=== PATIENT | female | born 1940 | race Caucasian/White ===

== ENCOUNTER 2016-12-30 09:05 | Observation (INO) | payer MEDICARE, BC ==
[~2016-12-30] VITALS: Ht 167.6 cm; Wt 79.5 kg
[2016-12-30] VITALS (14 sets, daily range): BP systolic 100–140; BP diastolic 56–73; PULSE 51–66; TEMP 97.6–98.1; O2SAT 82–100
[~2016-12-30 09:05] MED LIST: ADDERALL XR20 MG PO; AMBIEN CR12.5 MG PO; ARICEPT10 MG PO; ARICEPT5 MG PO; ASPI325T6 PO; ASPIRIN 81M81 MG/TA2 PO; ATIVAN0.5 MG PO; AUGMENTIN 875 M1 TAB PO; BUPROPION HCL150 M1 PO; CLINDAMYCIN HC300 MG PO; COZAAR 50MG50 MG/TAB PO; COZAAR100 MG PO; CYANOCOBAL1000 MCG/1 IM; DOXYCYCLINE 10100 MG PO; DRAMAMINE50 MG PO; FLEXERIL10 MG PO; HYDROCODONE/APAP; HYDROCORT CREAM1% TOP; HYOMAX-FT0.125 MG PO; KLOR-CON 1010 MEQ PO; LASIX 20MG TABL20 MG PO; MULTIPLE VITAMI1 CAP PO; MVI; NAMENDA10 MG PO; NEXIUM 40MG40 MG PO; NORCO 325 MG-7.1 TAB PO; OMEPRAZOLE D/R20 MG PO; PREMARIN VAG42.5 GM VG; PRILOSEC 20MG20 MG PO; PROZAC 20MG20 MG PO; REGLAN 10MG10 MG/TAB PO; SYNTHROID0.05 MG/TA PO; ULTRAM 50MG TAB50 MG PO; VICODIN 5/5001 UDTAB PO; VITAMIN B12100 MCG PO; WELLBUTRIN XL300 M1 PO; XALATAN EYE DROPS OU; ZOFRAN 4MG T4 MG/TAB PO; [UNRECOGNIZED DRUG - OTHER] PO
[2016-12-30 10:56] LABS: BASO # 0.1 (0.0-0.2); BASO % 0.4 % (0.0-2.0); EOS # 0.2 (0.0-0.7); EOS % 1.8 % (0-4.0); GRAN # 9.1 (1.4-6.5); GRAN % 80.3 % (42.2-75.2); LYMPH # 1.3 (1.2-3.4); LYMPH % 11.6 % (20.0-51.0); MEAN CELL VOLUME 79 fl (80.0-100.0); MEAN CORPUSCULAR HGB CONC 30 g/dl (33.0-37.0); MEAN PLATELET VOLUME 9.6 fl (7.4-10.4); MONO # 0.6 (0.1-0.6); MONO % 5.6 % (1.7-9.3); PLATELET COUNT 344 K/mm3 (130-400); RED BLOOD COUNT 4.24 M/mm3 (4.10-5.30); REDCELL DISTRIBUTION WIDTH-CV 17.9 % (11.5-14.5); WHITE BLOOD COUNT 11.3 K/mm3 (4.8-10.8)
[2016-12-30 10:59] LABS: HEMATOCRIT 33.6 % (37.0-47.0); HEMOGLOBIN 9.9 g/dl (12.5-16.0); MEAN CORPUSCULAR HEMOGLOBIN 23 pg (27.0-31.0)
[2016-12-30 11:07] LABS: PH 5 (5-8); SQUAMOUS EPITHELIAL 0-2 /hpf; URINE APPEARANCE Clear; URINE BACTERIA Rare /hpf; URINE BILIRUBIN Negative (NEGATIVE); URINE BLOOD Negative (NEGATIVE); URINE COLOR Yellow; URINE GLUCOSE Negative (NEGATIVE); URINE KETONE Negative (NEGATIVE); URINE RBC 0-2 /hpf; URINE UROBILINOGEN Negative (NEGATIVE)
[2016-12-30 11:08] LABS: ADJUSTED CALCIUM 9.1 mg/dL (8.4-10.2); ALANINE AMINOTRANSFERASE 20 U/L (9-52); ALBUMIN 3.6 gm/dL (3.5-5.0); ALKALINE PHOSPHATASE 87 U/L (50-136); ANION GAP 9 mmol/L (7-16); BILIRUBIN,TOTAL 0.5 mg/dL (0.0-1.0); BLOOD UREA NITROGEN 17 mg/dL (7-17); CALCIUM 8.8 mg/dL (8.4-10.2); CARBON DIOXIDE 25 mmol/L (22-30); CHLORIDE 105 mmol/L (98-107); CREATININE, serum 0.75 mg/dL (0.52-1.25); GLUCOSE 71 mg/dL (74-106); POTASSIUM 4.1 mmol/L (3.4-5.0); SODIUM 139 mmol/L (137-145); TOTAL PROTEIN 6.4 gm/dL (6.4-8.2)
[2016-12-30 11:09] LABS: C-REACTIVE PROTEIN < 0.5 mg/dL (0.0-0.9)
[2016-12-30 11:15] LABS: TROPONIN-I < 0.012 ng/mL (0.000-0.034)
[2016-12-30 12:37] LABS: PROLACTIN 22.9 ng/mL (3.0-18.6)
[2016-12-30] MEDS ORDERED: DESYREL 50MG50 MG PO (15:09)
[2016-12-30] MEDS ORDERED: ZYPREXA2.5 MG PO (15:09)
[2016-12-30] MEDS ORDERED: NYAMYC100000 U/G TP (15:12)
[2016-12-30] MEDS ORDERED: AZO-CRANBERRY450 MG PO (15:13)
[2016-12-31] VITALS (479 sets, daily range): BP systolic 107–154; BP diastolic 65–81; PULSE 17–97; TEMP 97.4–100; O2SAT 79–100
[2017-01-01 03:06] VITALS: BP 131/60; PULSE 60; TEMP 97.2
[2017-01-01 08:25] VITALS: BP 145/55; PULSE 53; TEMP 98
[2017-01-01 12:22] VITALS: BP 113/31; PULSE 69; TEMP 98.8
[2017-01-01] MEDS ORDERED: KEPPRA 500MG500 MG PO (15:36)
[2017-01-01 15:51] VITALS: BP 122/61; PULSE 65; TEMP 98.4
== END 2017-01-01 19:44 | disposition home or self-care (01) ==
LOC: COL.ER 09:05 → IMCU 13:23 → MEDICAL 12-31 17:27
PROVIDERS: Emergency Medicine
DX: R25.1 Tremor, unspecified (principal); N39.0 Urinary tract infection, site not specified; F03.90 Unspecified dementia, unspecified severity, without behavioral disturbance, psychotic disturbance, mood disturbance, and anxiety; E89.0 Postprocedural hypothyroidism
CPT/HCPCS: 99232-AI; 99239; G0378; J0696; J1650; J1953; J7030

== ENCOUNTER 2017-01-19 08:59 | Emergency (ER) | payer MEDICARE, BC ==
[~2017-01-19] VITALS: Ht 167.6 cm; Wt 77.3 kg
[~2017-01-19 08:59] MED LIST changes: +AZO-CRANBERRY450 MG PO; +DESYREL 50MG50 MG PO; +KEPPRA 500MG500 MG PO; +NYAMYC100000 U/G TP; +ZYPREXA2.5 MG PO
[2017-01-19 09:09] VITALS: BP 11/56; TEMP 99.1
[2017-01-19 10:14] LABS: BASO # 0.1 (0.0-0.2); BASO % 0.4 % (0.0-2.0); EOS # 0.1 (0.0-0.7); EOS % 0.7 % (0-4.0); GRAN # 10.8 (1.4-6.5); LYMPH % 7.9 % (20.0-51.0); MEAN CELL VOLUME 77 fl (80.0-100.0); MEAN CORPUSCULAR HGB CONC 30 g/dl (33.0-37.0); MEAN PLATELET VOLUME 9.6 fl (7.4-10.4); MONO # 0.9 (0.1-0.6); MONO % 6.8 % (1.7-9.3); PLATELET COUNT 277 K/mm3 (130-400); RED BLOOD COUNT 4.48 M/mm3 (4.10-5.30); WHITE BLOOD COUNT 12.9 K/mm3 (4.8-10.8)
[2017-01-19 10:22] LABS: HEMATOCRIT 34.6 % (37.0-47.0); HEMOGLOBIN 10.4 g/dl (12.5-16.0); MEAN CORPUSCULAR HEMOGLOBIN 23 pg (27.0-31.0)
[2017-01-19 10:57] LABS: ERYTHROCYTE SEDIMENTATION RATE 15 mm/hr (0-30)
[2017-01-19 11:09] LABS: ADJUSTED CALCIUM 9.6 mg/dL (8.4-10.2); ALBUMIN 3.6 gm/dL (3.5-5.0); BILIRUBIN,TOTAL 0.7 mg/dL (0.0-1.0); CALCIUM 9.3 mg/dL (8.4-10.2); CREATININE, serum 0.74 mg/dL (0.52-1.25); POTASSIUM 3.9 mmol/L (3.4-5.0); TOTAL PROTEIN 6.5 gm/dL (6.4-8.2); URIC ACID 3.2 mg/dL (2.5-6.2)
[2017-01-19 11:23] LABS: C-REACTIVE PROTEIN 1.4 mg/dL (0.0-0.9)
[2017-01-19] MEDS ORDERED: NORCO 325 MG-51 TAB PO (17:33)
[2017-01-19] MEDS ORDERED: DOXYCYCLINE 10100 MG PO (17:33)
[2017-01-19 18:06] VITALS: PULSE 80
== END 2017-01-19 18:07 | disposition home or self-care (01) ==
LOC: COL.ER 08:59
PROVIDERS: Emergency Medicine
DX: M25.531 Pain in right wrist (principal); M25.431 Effusion, right wrist; G30.9 Alzheimer's disease, unspecified; F02.80 Dementia in other diseases classified elsewhere, unspecified severity, without behavioral disturbance, psychotic disturbance, mood disturbance, and anxiety
CPT/HCPCS: A9585; J2270; J3010